=== PATIENT | female | born 1975 | race Caucasian/White ===

== ENCOUNTER → 2021-08-08 14:38 | Outpatient (CLI) | payer BC, SELFPAY ==
--- NOTE | 2021-08-08 15:01 | MM_ITS ---
PROCEDURE INFORMATION: Exam: Right Diagnostic Breast Tomosynthesis Exam date and time: 08/08/2021 3:01 PM Age: 45 years old Clinical indication: Callback for additional assessment of possible 13 mm mass in the right upper outer middle-posterior breast identified on screening mammogram 07/23/2021 TECHNIQUE: Imaging protocol: Right Diagnostic tomosynthesis and 2D mammography including computer-aided detection (CAD) when performed. Unilateral or bilateral exam. COMPARISON: SCN DIG BREAST TOMOSYN LEONIDAS 07/23/2021 12:06 PM FINDINGS: MAMMOGRAPHY: Spot compression views demonstrate dense nodular glandular tissues throughout the entire upper outer breast. The a a subtle 10 mm focal density is thought to be largely obscured in this region. Ultrasound assessment is recommended to exclude the possibility of underlying mostly obscured mass IMPRESSION: Incomplete. Ultrasound assessment of the upper outer right breast with special attention to the middle-posterior 1/3 is recommended in an effort to exclude a mostly obscured 1 cm mass ASSESSMENT: Assessment: BI-RADS category 0: Incomplete-need additional imaging evaluation
== END ==
PROVIDERS: PCP Internal Medicine Adolescent Medicine; Visit Provider Nurse Practitioner Family
DX: R92.8 Other abnormal and inconclusive findings on diagnostic imaging of breast (principal)
CPT/HCPCS: 77061; 77065; G0279

== ENCOUNTER → 2021-08-17 15:34 | Outpatient (CLI) | payer BC, SELFPAY ==
--- NOTE | 2021-08-17 15:42 | US_ITS ---
PROCEDURE INFORMATION: Exam: US Right Breast, Complete Exam date and time: 08/17/2021 3:58 PM Age: 45 years old Clinical indication: Recall on the basis of screening mammogram from 07/03/2021 and diagnostic mammogram from 08/08/2021 for sonographic evaluation of a possible 1.0 cm mass in the upper outer, middle to posterior, breast. TECHNIQUE: Imaging protocol: Complete ultrasound of all four quadrants of the Right breast and the retroareolar regions, including ultrasound of the axilla when performed. COMPARISON: MG MM DIG MAMM DX UNILAT RT CAD 08/08/2021 3:00 PM FINDINGS: Breast: Right sonography, all 4 quadrants, retroareolar and axilla. At 10 o'clock 10 cm from the nipple, mildly complicated cluster of cysts measuring 1.0 by 1.2 x 0.5 cm and at 10 o'clock 8 cm from the nipple, simple cyst measuring 1.3 by 1.6 x 0.7 cm - either of these findings may correlate with the mammographic nodule. At 10 o'clock 5 cm from the nipple, simple cyst measuring 0.5 by 0.6 x 0.5 cm. At 9 o'clock 4 cm from the nipple, simple cyst measuring 0.5 x 0.2 by 0.5 cm. No suspicious cystic and no solid mass demonstrated. Sonographically unremarkable right axillary lymph node. IMPRESSION: Probably benign findings, with cystic changes likely accounting for the mammographic finding, suggest six-month follow-up targeted right breast ultrasound at 10 o'clock and right diagnostic mammogram, unless otherwise clinically indicated. ASSESSMENT: BI-RADS Category 3: Probably benign
== END ==
PROVIDERS: PCP Internal Medicine Adolescent Medicine; Visit Provider Nurse Practitioner Family
DX: R92.8 Other abnormal and inconclusive findings on diagnostic imaging of breast (principal)
CPT/HCPCS: 76641

== ENCOUNTER → 2022-04-01 12:54 | Outpatient (CLI) | payer BC, SELFPAY ==
--- NOTE | 2022-04-01 13:03 | MM_ITS ---
PROCEDURE INFORMATION: Exam: US Right Breast, Complete MG Right Diagnostic Breast Tomosynthesis Exam date and time: 04/01/2022 1:56 PM Age: 46 years old Clinical indication: Six-month follow-up for probably benign mammographic and cystic changes, from June and July 2021. TECHNIQUE: Imaging protocol: Complete ultrasound of all four quadrants of the Right breast and the retroareolar regions, including ultrasound of the axilla when performed. Right Diagnostic tomosynthesis and 2D mammography including computer-aided detection (CAD) when performed. Unilateral or bilateral exam. COMPARISON: 1. US BREAST RT COMPLETE 08/17/2021 3:58 PM 2. MG MM DIG MAMM DX UNILAT RT CAD 08/08/2021 3:00 PM 3. MG SCN DIG BREAST TOMOSYN LEONIDAS 07/23/2021 12:06 PM 4. MG SCN DIG BREAST TOMOSYN LEONIDAS 04/14/2019 1:35 PM 5. MG SCN DIG BREAST TOMOSYN LEONIDAS 03/16/2018 10:47 AM FINDINGS: MAMMOGRAPHY: Breast composition: The breasts are heterogeneously dense, which may obscure small masses. Mass: Oval, slightly lobulated, 1.0 mass with related calcifications (which layer in a benign microcyst pattern in the MLO spot compression), at about 12:00 10 cm from the nipple, appears stable in size since 03/16/2018. Oval 1.0 mass/asymmetry, in the upper breast, middle 3rd, cm from the nipple, cyst seen MLO frame 13, best seen on tomosynthesis limiting comparison to prior available 2D images. Architectural distortion: None. Calcifications: Groupings of faint calcifications in the upper outer quadrants, with layering as noted above. No suspicious calcifications. Asymmetric density: None. Skin thickening: None. Axillary adenopathy: None. ULTRASOUND: Right sonography, all 4 quadrants, retroareolar and axilla. At 10 o'clock 10 cm from the nipple, mildly complicated cluster of cysts measuring 1.0 x 0.8 by 1.2 cm which measured 1.0 by 1.2 x 0.5 cm on 08/17/2021. At 10 o'clock 8 cm from the nipple, complicated cyst measuring 0.4 x 0.3 x 0.4 cm which is smaller than 08/17/2021 when it measured 1.3 by 1.6 x 0.7 cm. At 10 o'clock 4 cm from the nipple, possibly complicated cyst with near field low-level echoes which may be technical measuring 1.9 by 2.0 x 1.0 cm. At 10 o'clock 5 cm from the nipple, simple cyst measuring 0.5 x 0.3 by 0.5 cm which measured 0.5 by 0.6 x 0.5 cm At 9 o'clock 4 cm from the nipple, complicated cyst measuring 0.4 x 0.3 by 0.3 cm, which measured 0.5 x 0.2 by 0.5 cm on 08/17/2021. At 5 o'clock 5 cm from the nipple, simple cyst measuring 0.5 x 0.6 x 0.3 cm. At 5 o'clock 4 cm from the nipple, simple cyst measuring 0.6 x 0.3 by 0.6 cm. Sonographically unremarkable right axillary lymph node. IMPRESSION: Probably benign findings with mammographic masses related to calcifications which layer in a benign microcyst pattern and waxing and waning appearance of cystic changes on sonography. Suggest six-month follow-up right diagnostic mammogram, including magnification views in CC and ML projections as well as right sonography, unless otherwise clinically indicated. Please note that patient is due for screening mammography (right) in June 2022 otherwise indicated. Assessment: BI-RADS Category 3: Probably benign
== END ==
PROVIDERS: PCP Family Medicine; Visit Provider Nurse Practitioner Family
DX: R92.8 Other abnormal and inconclusive findings on diagnostic imaging of breast (principal)
CPT/HCPCS: 76641; 77061; 77065; G0279

== ENCOUNTER → 2022-08-16 15:52 | Outpatient (CLI) | payer BC, SELFPAY ==
--- NOTE | 2022-08-16 15:56 | MM_ITS ---
PROCEDURE INFORMATION: Exam: MG Bilateral Screening 3D Mammography Exam date and time: 08/16/2022 3:50 PM Age: 46 years old Clinical indication: Screening examination - Six-month follow-up right diagnostic mammography and right sonography recommended 04/01/2022. No family history of breast cancer. TECHNIQUE: Imaging protocol: Bilateral Screening tomosynthesis and 2D mammography including computer-aided detection (CAD) when performed. COMPARISON: 1. MG MM DIG MAMM DX UNILAT RT CAD 04/01/2022 12:57 PM 2. MG MM DIG MAMM DX UNILAT RT CAD 08/08/2021 3:00 PM 3. MG SCN DIG BREAST TOMOSYN LEONIDAS 07/23/2021 12:06 PM FINDINGS: MAMMOGRAPHY: Breast composition: The breasts are heterogeneously dense, which may obscure small masses. Mass: Right 1.0 oval mass at in the central breast, posterior 3rd, 10 cm from the nipple, stable in size since 04/14/2019 with stable related with related of probably benign-appearing calcifications since 07/23/2021. Bilateral scattered oval partly circumscribed partly visualized isodense masses, largest is 1.9 cm in the outer 3rd of the left breast, CC frame 25. Architectural distortion: None. Calcifications: Scattered groupings of calcifications - many layer in a benign microcyst patterns even in the non magnified MLO projections - most numerous in the left upper outer quadrant posterior 3rd, similar to 07/23/2021. No suspicious calcifications. Asymmetric density: None. Skin thickening: None. Axillary adenopathy: None. IMPRESSION: Continued six month follow advised (for calcifications from 07/23/2021 and from sonography from 08/17/2021) with bilateral diagnostic magnification views in CC and true lateral (right central breast posterior 3rd and left upper outer posterior 3rd) and bilateral screening sonography. Suggest patient return in 09/2022 for this imaging, which would be the follow up from 04/01/2022, unless otherwise clinically indicated. ASSESSMENT: BI-RADS Category 3: Probably benign
== END ==
PROVIDERS: PCP Family Medicine; Referring Provider Nurse Practitioner Family; Visit Provider Family Medicine
DX: Z12.31 Encounter for screening mammogram for malignant neoplasm of breast (principal)
CPT/HCPCS: 77063; 77067

== ENCOUNTER → 2022-10-07 13:54 | Outpatient (CLI) | payer BC, SELFPAY ==
--- NOTE | 2022-10-07 14:03 | MM_ITS ---
PROCEDURE INFORMATION: Exam: US Right Breast, Complete US Left Breast, Complete MG Bilateral Diagnostic Breast Tomosynthesis Exam date and time: 10/07/2022 2:02 PM Age: 46 years old Clinical indication: Short-term radiographic followup; Bilateral breasts; Abnormal findings on imaging; Additional info: Abn mamm TECHNIQUE: Imaging protocol: Complete ultrasound of all four quadrants of the right breast and the retroareolar regions, including ultrasound of the axilla when performed. Complete ultrasound of all four quadrants of the left breast and the retroareolar regions, including ultrasound of the axilla when performed. Bilateral Diagnostic tomosynthesis and 2D mammography including computer-aided detection (CAD) when performed. Unilateral or bilateral exam. COMPARISON: 1. MG MM DIG SCREENING MAMM BI W/CAD 08/16/2022 3:50 PM 2. MG MM DIG MAMM DX UNILAT RT CAD 04/01/2022 12:57 PM 3. MG MM DIG MAMM DX UNILAT RT CAD 08/08/2021 3:00 PM 4. MG SCN DIG BREAST TOMOSYN LEONIDAS 07/23/2021 12:06 PM FINDINGS: MAMMOGRAPHY: The breast is heterogeneously dense, which may obscure small masses. There is a grouping of predominantly punctate calcifications spanning 1.1 cm central posterior right breast about 11 cm from the nipple the, not well-delineated on lateral projection but probably projecting along the 6 o'clock axis. These have remained stable dating back to screening images 06/14/20 given the difference in mammogram technique A cluster of calcifications spanning about 2 cm in the upper outer left middle 05/28 this similar to 07/23/21 given the difference in technique the the. Some of these appear to layer on lateral projection suggesting possible local calcium ULTRASOUND: Right breast ultrasound: Along the 5 o'clock axis 4 cm from the nipple there is a horizontally oriented lobulated predominantly circumscribed 1.3 x 0.9 by 0.4 cm cystic appearing mass which has generally benign features but was not documented previously. Heterogeneous microlobulated complicated cystic appearing mass along the 10 o'clock axis 10 cm from the nipple measures 1.0 x 0.6 by 0.8 cm compared with 1.0 x 0.8 x 1.2 cm on 04/01/2022. Numerous hypoechoic and anechoic circumscribed masses are consistent with simple and complicated cysts, the largest measuring 1.9 cm along the 10 o'clock axis Left breast ultrasound: There are numerous hypoechoic and anechoic nodules throughout the left breast, the largest measuring 1.5 cm along the 1 o'clock axis and 2.0 cm along the 1 o'clock axis. These reflect simple and complicated cysts. No suspicious solid or cystic mass is present breast line no architectural distortion or shadowing is present. IMPRESSION: Continue mammographic and sonographic surveillance is required in 6 months to confirm stability of the following: -1.1 cm grouping of calcifications in the posterior right breast located 11 cm directly behind the nipple. -2.0 cm cluster of calcifications in the upper outer left middle 1/3 -Sonographically apparent 1.3 cm mass along the right 5 o'clock axis 4 cm from the nipple. -Sonographically apparent 1.0 cm mass along the right 10 o'clock axis 10 cm from the nipple ASSESSMENT: BI-RADS category 3: Probably benign
== END ==
PROVIDERS: PCP Family Medicine; Visit Provider Nurse Practitioner Family
DX: R92.8 Other abnormal and inconclusive findings on diagnostic imaging of breast (principal)
CPT/HCPCS: 76641; 77062; 77066; G0279

== ENCOUNTER → 2023-01-23 15:35 | Outpatient (POV) | payer BC, SELFPAY | PROVIDERS: Visit Provider Specialist/Technologist | DX: Z00.00 Encounter for general adult medical examination without abnormal findings (principal) ==

== ENCOUNTER → 2023-04-01 13:46 | Outpatient (POV) | payer BC, SELFPAY | PROVIDERS: Visit Provider Specialist/Technologist | DX: Z00.00 Encounter for general adult medical examination without abnormal findings (principal) ==

== ENCOUNTER → 2023-05-07 13:55 | Outpatient (CLI) | payer BC, SELFPAY ==
--- NOTE | 2023-05-07 14:02 | US_ITS ---
PROCEDURE INFORMATION: Exam: US Right Breast, Complete US Left Breast, Complete MG Bilateral Diagnostic Breast Tomosynthesis Exam date and time: 05/07/2023 1:58 PM Age: 47 years old Clinical indication: Short-term radiographic followup; Bilateral breasts; calcifications TECHNIQUE: Imaging protocol: Complete ultrasound of all four quadrants of the right breast and the retroareolar regions, including ultrasound of the axilla when performed. Complete ultrasound of all four quadrants of the left breast and the retroareolar regions, including ultrasound of the axilla when performed. Bilateral Diagnostic tomosynthesis and 2D mammography including computer-aided detection (CAD) when performed. Unilateral or bilateral exam. COMPARISON: 1. MG MM DIG MAMM BI DX W/CAD 10/07/2022 2:02 PM 2. MG MM DIG SCREENING MAMM BI W/CAD 08/16/2022 3:50 PM FINDINGS: MAMMOGRAPHY: The breast tissue is extremely dense, which lowers the sensitivity of mammography. There is no stellate mass more architectural distortion in either breast to suggest malignancy. Magnification views of the posterior left lateral breast demonstrate benign layering calcifications consistent with benign milk of calcium. Magnification views of the posterior right lower outer quadrant demonstrates stable clustered punctate calcifications. No skin thickening or axillary adenopathy. ULTRASOUND: Sonographic images of both breasts including the retroareolar regions, all 4 quadrants and the axilla were obtained. Scattered bilateral benign cysts are noted with a applications sales representative dominant cyst in the left 1 o'clock axis measuring 2.7 and a applications sales representative dominant 1.8 cm cyst in the right 10 o'clock axis. Clustered cysts in the right 6 o'clock axis have a combined dimension of 1.5 cm. Cursors were placed over a mixed echotexture ovoid well-circumscribed nodule in the right 5 o'clock axis 5 cm from the nipple measuring 0.5 x 0.5 x 0.3 cm most likely reflecting focal fibrocystic change. No architectural distortion or acoustical shadowing. No skin thickening or axillary adenopathy. IMPRESSION: 1. Stable calcifications in the right breast compared to 06/14/2020. Their long-term stability are compatible with a benign etiology. 2. Benign left breast calcifications. 3. Coarse nodular parenchyma on mammography correspond to underlying benign cystic change on sonography. 4. Probably benign right 5 o'clock axis subcentimeter fibrocystic related nodule. A targeted right breast ultrasound is recommended in 6 months to ensure stability over time ASSESSMENT: BI-RADS Category 3: Probably benign
== END ==
PROVIDERS: PCP Family Medicine; Visit Provider Nurse Practitioner Family
DX: R92.8 Other abnormal and inconclusive findings on diagnostic imaging of breast (principal)
CPT/HCPCS: 76641; 77062; 77066; G0279

== ENCOUNTER 2023-10-27 15:51 | Outpatient (CLI) | payer BC, SELFPAY ==
--- NOTE | 2023-10-27 15:57 | MM_ITS ---
PROCEDURE INFORMATION: Exam: MG Bilateral Screening 3D Mammography Exam date and time: 10/27/2023 3:54 PM Age: 47 years old Clinical indication: Screening mammogram TECHNIQUE: Imaging protocol: Bilateral Screening tomosynthesis and 2D mammography including computer-aided detection (CAD) when performed. COMPARISON: 1. MG MM DIG MAMM BI DX W/CAD 05/07/2023 1:58 PM 2. MG MM DIG MAMM BI DX W/CAD 10/07/2022 2:02 PM 3. MG MM DIG SCREENING MAMM BI W/CAD 08/16/2022 3:50 PM 4. MG MM DIG MAMM DX UNILAT RT CAD 04/01/2022 12:57 PM FINDINGS: MAMMOGRAPHY: Breast composition: The breast is heterogeneously dense, which may obscure small masses. Mass: 3 cm mass within the upper outer left middle 1/3 should be further assessed with spot views in CC/MLO projection. Ultrasound may also be required. Architectural distortion: No new or suspicious architectural distortion. Calcifications: Calcifications within the slightly lower outer left middle 1/3 should be assessed with spot MAGNIFICATION views in CC/ML projection for morphologic characterization. Asymmetric density: No new or suspicious asymmetric density is present Skin thickening: None. Axillary adenopathy: None. IMPRESSION: 1. 3 cm mass within the upper outer left middle 1/3 should be further assessed with spot views in CC/MLO projection. Ultrasound may also be required. 2. Calcifications within the slightly lower outer left middle 1/3 should be assessed with spot MAGNIFICATION views in CC/ML projection for morphologic characterization. ASSESSMENT: BI-RADS category 0: Incomplete-need additional imaging evaluation
== END 2023-10-27 23:59 | disposition home or self-care (01) ==
PROVIDERS: PCP Family Medicine; Visit Provider Nurse Practitioner Family
DX: Z12.31 Encounter for screening mammogram for malignant neoplasm of breast (principal)
CPT/HCPCS: 77063; 77067